=== PATIENT | male | born 1975 | race Caucasian/White ===

== ENCOUNTER 2019-08-23 10:01 | Emergency (ER) | payer OTHER ==
[2019-08-23 10:18] VITALS: BP 127/99
--- NOTE | 2019-08-23 10:43 | UC ---
Shoulder Pain HPI - HPI Summary HPI Summary: left shoulder pain x 3 days pain is moderate 5 out 10 , radiates to his left arm, worse with movement and lifting better with rest and Tylenol . tingling and numbness of left arm and hand denies any injuries, - History of Current Complaint Chief Complaint: UCUpperExtremity Stated Complaint: LT SHOULDER PAIN Time Seen by Provider: 08/23/19 10:14 Hx Obtained From: Patient Onset/Duration: Gradual Onset, Lasting Days - 3, Still Present Timing: Constant Severity Initially: Moderate Severity Currently: Moderate Location Of Pain: Is Diffuse - left shoulder Pain Intensity: 5 Character: Aching, Throbbing Aggravating Factor(s): Movement, Lifting, Flexion Alleviating Factor(s): Rest, Elevation Associated Signs And Symptoms: Positive: Weakness, Numbness/Tingling. Negative : Swelling, Redness, Bruising, Fever - Allergies/Home Medications Allergies/Adverse Reactions: Allergies Allergy/AdvReac Type Severity Reaction Status Date / Time codeine Allergy Swelling Verified 08/23/19 10:15 ibuprofen Allergy Swelling Verified 08/23/19 10:15 Home Medications: Home Medications Cyclobenzaprine TAB* [Flexeril 10 MG TAB*] 10 mg PO BID #20 tab 08/23/19 [Rx] predniSONE [Prednisone 20 MG TAB] 40 mg PO DAILY #10 tablet 08/23/19 [Rx] PMH/Surg Hx/FS Hx/Imm Hx Respiratory History: Asthma - Surgical History Surgical History: Yes Surgery Procedure, Year, and Place: LT CLAVICLE SURGERY - Family History Known Family History: Positive: Non-Contributory - Social History Alcohol Use: None Substance Use Type: Marijuana Smoking Status (MU): Heavy Every Day Tobacco Smoker Type: Cigarettes Amount Used/How Often: 1 PPD - Immunization History Most Recent Tetanus Shot: 2011 Review of Systems All Other Systems Reviewed And Are Negative: Yes Constitutional: Positive: Negative Skin: Positive: Negative Eyes: Positive: Negative Is Patient Immunocompromised?: No Physical Exam Triage Information Reviewed: Yes Appearance: Well-Nourished, Pain Distress Vital Signs: Initial Vital Signs Temp 97 F 08/23/19 10:15 Pulse 71 08/23/19 10:15 Resp 16 08/23/19 10:15 BP 127/99 08/23/19 10:15 Pulse Ox 99 08/23/19 10:15 Vital Signs Reviewed: Yes Eye Exam: Normal Eyes: Positive: Conjunctiva Clear ENT: Positive: Normal ENT inspection, Hearing grossly normal, Pharynx normal Neck: Positive: Supple, Nontender, No Lymphadenopathy Respiratory Exam: Normal Respiratory: Positive: Chest non-tender, Lungs clear, Normal breath sounds Cardiovascular: Positive: RRR, No Murmur, Pulses Normal Musculoskeletal: Positive: Other: - left shoulder: no swelling, no erythema, + diffuse tenderness, limited ROM on flexion/ abduction and extension due to pain , limited strength Neurological Exam: Normal Skin Exam: Normal Diagnostics - Radiology No standard instances Radiology Interpretation Completed By: Radiologist - IMPRESSION: 1. OLD SUPERIORLY ANGULATED MIDCLAVICULAR FRACTURE. Shoulder Course/Dx - Differential Dx/Diagnosis Provider Diagnosis: Left shoulder pain, Thoracic outlet syndrome Discharge ED - Sign-Out/Discharge Documenting (check all that apply): Patient Departure All imaging exams completed and their final reports reviewed: Yes - Discharge Plan Condition: Stable Disposition: HOME Prescriptions: Cyclobenzaprine TAB* [Flexeril 10 MG TAB*] 10 mg PO BID #20 tab predniSONE [Prednisone 20 MG TAB] 40 mg PO DAILY #10 tablet Referrals: Mayuri Marti MD [Primary Care Provider] - - Billing Disposition and Condition Condition: STABLE Disposition: Home
== END 2019-08-23 10:58 | disposition home or self-care (01) ==
LOC: UCCORT 10:01
DX: M25.512 Pain in left shoulder (principal); G54.0 Brachial plexus disorders; Z88.6 Allergy status to analgesic agent; Z88.5 Allergy status to narcotic agent; F17.210 Nicotine dependence, cigarettes, uncomplicated
CPT/HCPCS: 99202; G0463